=== PATIENT | female | born 1975 | race Caucasian/White ===

== ENCOUNTER → 2018-11-02 | Outpatient (CLI) | payer BC ==
[~2018-11-02] MED LIST: CEPHALEXIN500 M1 PO; NO HOME MEDICATIONS
== END ==
LOC: MC.RAD 15:00
DX: Z12.31 Encounter for screening mammogram for malignant neoplasm of breast (principal)

== ENCOUNTER → 2021-05-11 | Outpatient (CLI) | payer BC | LOC: MC.RAD 15:30 | DX: Z12.31 Encounter for screening mammogram for malignant neoplasm of breast (principal) ==

== ENCOUNTER → 2022-05-17 | Outpatient (CLI) | payer BC | LOC: MC.RAD 07:42 | DX: Z12.31 Encounter for screening mammogram for malignant neoplasm of breast (principal) ==